=== PATIENT | male | born 1995 | race Caucasian/White ===

== ENCOUNTER 2018-07-05 20:51 | Emergency (ER) | payer OTHER ==
[~2018-07-05] VITALS: Ht 190.5 cm; Wt 75.0 kg
[2018-07-05 21:08] VITALS: Ht 190.5 cm; Wt 75.0 kg
[2018-07-05 21:32] LABS: BASOPHILS 0.5 % (0-2); HEMOGLOBIN 14.1 g/dL (13.5-17.5); IMMATURE GRANULOCYTES 0.2 % (0-5); LYMPHOCYTES 36.9 % (15-50); MCH 29.4 pg (26.0-34.0); MCHC 35.3 g/dL (31.0-37.0); MCV 83.3 fL (80.0-100.0); MEAN PLATELET VOLUME 9.1 fL (7.4-10.4); MONOCYTES 11.6 % (2-11); NEUTROPHILS 45.8 % (40-80); PLATELET COUNT 198 10x3/uL (130-400); RDW 11.6 % (11.5-14.5); WBC 5.9 10x3/uL (4.8-10.8)
[2018-07-05 21:51] LABS: ALKALINE PHOSPHATASE 99 U/L (46-116); ALT (SGPT) 21 U/L (10-68); AMYLASE - SERUM 48 U/L (25-115); BILIRUBIN - TOTAL 0.62 mg/dL (0.2-1.3); CALC OSMOLALITY 282 mosm/kg (275-300); CALCIUM 9.2 mg/dL (8.5-10.1); CARBON DIOXIDE 33.8 mmol/L (21.0-32.0); CHLORIDE - SERUM 104 mmol/L (98-107); CREATININE - SERUM 0.8 mg/dL (0.6-1.3); GLUCOSE 85 mg/dL (74-106); LIPASE 100 U/L (73-393); POTASSIUM - SERUM 3.6 mmol/L (3.5-5.1); PROTEIN - SERUM 7.2 g/dL (6.4-8.2); SODIUM 142 mmol/L (136-145); UREA NITROGEN 15 mg/dL (7-18); eGFR NON AFRICAN AMERICAN > 90 mL/min (90-120)
[2018-07-06 01:15] VITALS: BP 122/78
== END 2018-07-06 01:15 | disposition home or self-care (01) ==
LOC: D.ER 20:51
PROVIDERS: Family Medicine
DX: J02.9 Acute pharyngitis, unspecified (principal); R05 Cough; R09.89 Other specified symptoms and signs involving the circulatory and respiratory systems; R11.2 Nausea with vomiting, unspecified

== ENCOUNTER 2018-08-24 13:04 | Emergency (ER) | payer OTHER ==
[~2018-08-24] VITALS: Ht 190.5 cm; Wt 73.6 kg
[2018-08-24 13:23] VITALS: Ht 190.5 cm; Wt 73.6 kg
[2018-08-24] MEDS ORDERED: PENICILLIN V P500 MG PO (15:21)
[2018-08-24] MEDS ORDERED: FLAGYL500 MG PO (15:21)
[2018-08-24 15:33] VITALS: BP 101/59
== END 2018-08-24 15:35 | disposition home or self-care (01) ==
LOC: D.ER 13:04
DX: H60.502 Unspecified acute noninfective otitis externa, left ear (principal); K05.00 Acute gingivitis, plaque induced

== ENCOUNTER 2018-09-18 15:57 | Emergency (ER) | payer SELFPAY ==
[~2018-09-18] VITALS: Ht 190.5 cm; Wt 72.7 kg
[~2018-09-18 15:57] MED LIST: FLAGYL500 MG PO; PENICILLIN V P500 MG PO
[2018-09-18 16:00] VITALS: Ht 190.5 cm; Wt 72.7 kg
[2018-09-18 16:19] LABS: APPEARANCE CLEAR (CLEAR); BILIRUBIN NEGATIVE (NEGATIVE); COLOR YELLOW (YELLOW); GLUCOSE NEGATIVE (NEGATIVE); KETONE NEGATIVE (NEGATIVE); NITRITE NEGATIVE (NEGATIVE); PROTEIN TRACE mg/dL (NEGATIVE); UROBILINOGEN NORMAL (NORMAL)
[2018-09-18 16:24] LABS: BASOPHILS 0.5 % (0-2); EOSINOPHILS 11.1 % (0-7); HEMOGLOBIN 15.5 g/dL (13.5-17.5); IMMATURE GRANULOCYTES 0.2 % (0-5); LYMPHOCYTES 22.8 % (15-50); MCH 29.2 pg (26.0-34.0); MCV 81.1 fL (80.0-100.0); MEAN PLATELET VOLUME 9.4 fL (7.4-10.4); MONOCYTES 15.5 % (2-11); NEUTROPHILS 49.9 % (40-80); PLATELET COUNT 205 10x3/uL (130-400); RDW 12.1 % (11.5-14.5); WBC 6.6 10x3/uL (4.8-10.8)
[2018-09-18 16:45] LABS: ALBUMIN 3.8 g/dL (3.4-5.0); ALKALINE PHOSPHATASE 67 U/L (46-116); ALT (SGPT) 26 U/L (10-68); CALC OSMOLALITY 282 mosm/kg (275-300); CALCIUM 9.2 mg/dL (8.5-10.1); CARBON DIOXIDE 29.4 mmol/L (21.0-32.0); CHLORIDE - SERUM 103 mmol/L (98-107); CREATININE - SERUM 0.8 mg/dL (0.6-1.3); GLUCOSE 99 mg/dL (74-106); PROTEIN - SERUM 7.2 g/dL (6.4-8.2); SODIUM 142 mmol/L (136-145); UREA NITROGEN 12 mg/dL (7-18); eGFR NON AFRICAN AMERICAN > 90 mL/min (90-120)
[2018-09-18] MEDS ORDERED: ZOFRAN8 MG PO (17:50)
[2018-09-18] MEDS ORDERED: IMODIUM2 MG PO (17:50)
[2018-09-18 18:15] VITALS: BP 130/55
== END 2018-09-18 18:15 | disposition home or self-care (01) ==
LOC: D.ER 15:57
PROVIDERS: Family Medicine
DX: A08.4 Viral intestinal infection, unspecified (principal)